=== PATIENT | female | born 1965 | race Caucasian/White ===

== ENCOUNTER 2018-11-27 06:22 | Day surgery (SDC) | payer OTHER ==
[2018-11-21 17:40] VITALS: BMI 28.1
[2018-11-27] MEDS ORDERED: DEXAMETHASONE SOD PHOSPHATE 4 MG/1 ML VIAL ONE ×2 (07:17→07:55)
[2018-11-27] MEDS ORDERED: BUPIVACAINE HCL/PF 0.5% (5MG/ML) 10 ML VIAL ONE (07:18)
[2018-11-27] MEDS ORDERED: LIDOCAINE HCL 2% (20ML MULTI-DOSE VIAL) NR ONE (07:18)
[2018-11-27] MEDS ORDERED: MIDAZOLAM HCL 2 MG/2 ML SINGLE DOSE VIAL ONE (07:18)
[2018-11-27] MEDS ORDERED: ceFAZolin SODIUM 1 GM VIAL IVPB ONE (07:55)
[2018-11-27] MEDS ORDERED: ceFAZolin SODIUM 1 GM VIAL ONE (07:55)
[2018-11-27] MEDS ORDERED: LIDOCAINE HCL 2% (50ML VIAL) NR ONE (08:10)
[2018-11-27] MEDS ORDERED: BUPIVACAINE HCL/PF 0.5% (5MG/ML) 10 ML VIAL IJ ONE (08:10)
[2018-11-27] MEDS ORDERED: KETOROLAC TROMETHAMINE 30 MG/1 ML VIAL ONE (09:52)
[2018-11-27] MEDS ORDERED: ONDANSETRON 4 MG/2 ML VIAL IVPUSH PRN (10:25)
[2018-11-27] MEDS ORDERED: oxyCODONE HCL 5 MG TABLET PO PRN ×2 (10:25)
[2018-11-27] MEDS ORDERED: LACTATED RINGERS SOLUTION 1,000 ML IV SCH (10:30)
[2018-11-27 13:00] VITALS: BP 115/74; PULSE 56; TEMP 97.7
--- NOTE | 2018-11-28 17:57 | PATH ---
Surgical Pathology Report Patient Name: LORY JOHNSTON [facility]. Rec. #: [id number] /Age/Gender: 1965 (Age: 53) / F Account: [id number] Location: [facility] SURGICAL Taken: 11/27/2018 Received: 11/27/2018 Reported: 11/28/2018 Physicians: Victor Hugo Rangel DPM Specimen(s) Received BONE AND SKIN FROM LEFT FOOT FIRST TOE Clinical History Left foot bunion Final Diagnosis BONE AND "SKIN", FIRST TOE, LEFT, IVELISSE BUNIONECTOMY: BONE WITH DEGENERATIVE CHANGES, DENSE FIBROCONNECTIVE AND FIBROADIPOSE TISSUE. Electronically Signed Jennifer Rm M.D. Gross Description Received in formalin labeled "bone and skin left first toe," are 2 melvin-yellow portions of bone measuring 1.0 x 0.6 x 0.3 cm and 1.8 x 1.2 x 0.3 cm. Also received in the same container is a 1.2 x 0.9 x 0.3 cm melvin, irregular portion of soft tissue. No definitive skin is identified. Road Freight Brake Coupler sections are submitted in one cassette, following decalcification. /11/27/2018 saudi11/27/2018
--- NOTE | 2018-11-29 09:02 | OP ---
DATE OF OPERATION: 11/27/2018 PREOPERATIVE DIAGNOSIS: Left foot hallux abducto valgus. POSTOPERATIVE DIAGNOSIS: Left foot hallux abducto valgus. PROCEDURE: Left foot Tk bunionectomy. PATHOLOGY: Bone and soft tissue. ANESTHESIA: Local with IV sedation. SURGEON: Victor Hugo Rangel DPM HEMOSTASIS: Pneumatic ankle tourniquet set at 250 mmHg. ESTIMATED BLOOD LOSS: Minimal. MATERIALS: A 2.4 x 16 mm Trilliant screw, a 2.4 x 18 mm Trilliant screw; 2-0 Vicryl, 4-0 Vicryl, 4-0 nylon. INJECTABLES: Preoperatively 25 mL of 1:1 mixture of 0.5% Marcaine plain and 2% lidocaine plain. Postoperatively an 8:2 mixture of Decadron and 0.5% Marcaine plain. COMPLICATIONS: None. CONDITION: Stable. Patient was brought to the operating room and placed on the operating table in the supine position. Pneumatic ankle tourniquet was then placed on the patient's left ankle. Following IV sedation, local anesthesia was obtained utilizing 25 mL of a 1:1 mixture of 0.5% Marcaine plain and 2% lidocaine plain. The left foot was then scrubbed, prepped, and draped in the usual aseptic manner. An Esmarch bandage was then utilized to exsanguinate the patient's left foot, and tourniquet was then inflated. An approximately 5-cm linear longitudinal incision was made medially across the 1st metatarsophalangeal joint of the left foot medial and parallel to the extensor hallucis longus tendon. The incision was then deepened through the subcutaneous tissues at the capsular level using sharp and blunt dissection. Care was taken to identify and retract all vital neural and vascular structures. All bleeders were ligated and cauterized as necessary. The capsule was then visualized, and a linear capsulotomy was then performed. All periosteal and capsular structures were then carefully dissected free and reflected medially and laterally, thus exposing the head of the 1st metatarsal. Utilizing a sagittal saw, the dorsal and medial prominences of the 1st metatarsal head of the left foot were then resected and passed from the operative field. A 0.045-inch was then used as an apical access guide, which was then driven from medial to lateral across the central aspect of the metatarsal head. The hip was then externally rotated and the knee flexed so that the medial surface of the foot faced superior for better visualization of the Tk procedure. A [id number] V-type osteotomy was then created utilizing a sagittal bone saw with the apex pointing distally with the dorsal arm slightly longer than the plantar arm to accommodate fixation. The capital fragment was then shifted laterally into an improved position which was then impacted on the head of the metatarsal shaft. A 0.062-inch K-wire was then driven across the osteotomy site for temporary fixation. At this time, 2 Trilliant screws were inserted across the osteotomy site using standard AO technique. Proximal screw used was a 2.4 mm x 18, and the distal screw was a 2.4 mm x 16. Both screws' position was confirmed under fluoroscopy and was noted to be in excellent position. At this time, the temporary K-wire was removed. All rough edges of bone were then resected and smoothed using power equipment, and the bunion deformity was noted to be vastly improved. At this time, a medial capsulorrhaphy was performed to further enhance the correction. Wound was then flushed with copious amounts of sterile saline, and periosteal and capsular structures were reapproximated using 2-0 Vicryl. Subcutaneous tissue was then closed with 4-0 Vicryl. Skin edges were then coapted using 5-0 nylon in horizontal mattress fashion. A postoperative injection consisting of an 8:2 mixture of Decadron and 0.5% Marcaine was then infiltrated to the surgical site. Xeroform was then applied to the incision site, and a sterile compressive dressing consisting of 4 x 4's, abdominal pads, Kerlix was then applied. The tourniquet was then deflated at this time, and immediate hyperemia returned to all digits of the left foot. At this time, Coban was used to secure the dressing. Patient was transported from the operating room to the recovery room with all vital signs stable and neurovascular status intact to the left foot. Following a period of postoperative monitoring, the patient will be discharged to home with prescriptions and instructions which were discussed prior to the surgery. Patient will follow up in private office in 1 week. KARLEE SCANLON/[id number]
== END 2018-11-27 13:00 | disposition home or self-care (01) ==
LOC: JASU-SURG 06:22
PROVIDERS: ATTEND Podiatrist
PROC: 0QSP04Z Reposition Left Metatarsal with Internal Fixation Device, Open Approach (ICD-10-PCS; principal; 2018-11-27 07:30)
DX: M21.612 Bunion of left foot (principal); M20.12 Hallux valgus (acquired), left foot
CPT/HCPCS: 73630-TC-LT; 88304-TC; 88311-TC; 97116-GP